=== PATIENT | female | born 1940 | race Caucasian/White ===

== ENCOUNTER 2018-04-07 13:23 | Emergency (ER) | payer MEDICARE ==
[~2018-04-07] VITALS: Ht 162.6 cm; Wt 90.8 kg
--- OUTSIDE RECORDS SUMMARY | 2018-04-07 13:25 | XMS REPORT | Clinical Summary ---
Author Author [facility] Address Unknown Phone Unavailable Care Team Providers Care Framing Machine Tender Name Role Phone Manish Steve MD PCP Allergies Active Allergy Reactions Severity Noted Date Comments Codeine GI Intolerance High 07/10/2017 Propoxyphene GI Intolerance High 07/10/2017 Meperidine GI Intolerance High 07/10/2017 Oxycodone GI Intolerance High 07/10/2017 Mgt-[id number]-Zye Pentazocine-Naloxone GI Intolerance High 07/10/2017 Current Medications Prescription Sig. Disp. Refills Start End Date Status Date LUMIGAN 0.01 % ophthalmic INT 1 GTT IN OU QHS 3 05/09/20 Active drops 17 bisoprolol-hydrochlorothi TK 1 T PO QD 2 06/19/19 Active azide (ZIAC) 5-6.25 mg 18 per tablet atorvastatin (LIPITOR) 20 TK 1 T PO QD 5 06/14/19 Active MG tablet 18 VITAMIN B COMPLEX VIT C Take by mouth. Active NO.4 (SUPER B COMPLEX + C ORAL) calcium acetate (PHOSLO) Take 1,334 mg by mouth 3 Active 667 mg capsule (three) times a day with meals. docosahexanoic acid-epa Take by mouth. Active (FISH OIL) 120-180 mg capsule oseltamivir (TAMIFLU) 75 TK 1 C PO QD FOR 10 DAYS 0 04/20/20 07/20/19 Discontin MG capsule 17 18 ued traMADol (ULTRAM) 50 mg Take 1 tablet (50 mg 30 tablet 0 07/25/19 07/30/19 tablet total) by mouth every 6 18 18 (six) hours as needed for moderate pain for up to 5 days. Active Problems Problem Noted Date S/P right knee arthroscopy 08/01/2017 Complex tear of medial meniscus of right knee as current injury 07/17/2017 Medial knee pain, right 07/10/2017 Encounters Date Type Specialty Care Team Description 08/01/2017 Office Visit Orthopedic Surgery Abdi Rondon MD S/P right knee arthroscopy (Primary Dx) 07/25/2017 Hospital General Surgery Abdi Rondon MD Encounter 07/25/2017 Anesthesia General Surgery Al Auguste MD Event 07/25/2017 Procedure Pass General Surgery 07/25/2017 Surgery General Surgery Abdi Rondon MD ARTHROSCOPY KNEE-RIGHT, PARTIAL MEDIAL MENISECTOMY 07/20/2017 Hospital Radiology Abdi Rondon MD Preoperative testing Encounter 07/20/2017 Pre-Admit Pre-Admission Testing Abdi Rondon MD Preoperative testing Testing (Primary Dx) Appointment 07/20/2017 Prep for Orthopedic Surgery Abdi Rondon MD Medial knee pain, right Surgery (Primary Dx); Complex tear of medial meniscus of right knee as current injury, initial encounter 07/17/2017 Office Visit Orthopedic Surgery Abdi Rondon MD Complex tear of medial meniscus of right knee as current injury, initial encounter (Primary Dx) 07/13/2017 Hospital Radiology Abdi Rondon MD Medial knee pain, right Encounter 07/10/2017 Office Visit Orthopedic Surgery Abdi Rondon MD Chronic pain of right knee (Primary Dx); Medial knee pain, right 07/10/2017 Procedure Pass Radiology after 04/06/2017 Family History Medical History Relation Name Comments Heart disease Father Cancer Mother Heart disease Mother Relation Name Status Comments Father Mother Social History Tobacco Use Types Packs/Day Years Used Date Never Smoker Smokeless Tobacco: Never Used Alcohol Use Drinks/Week oz/Week Comments No Sex Assigned at Date Recorded Not on file Last Filed Vital Signs Vital Sign Reading Time Taken Blood Pressure 152/60 07/25/2017 9:00 AM CUSTOMER PROJECT MANAGER Pulse 53 07/25/2017 9:00 AM CUSTOMER PROJECT MANAGER Temperature 36.5 C (97.7 F) 07/25/2017 8:32 AM CUSTOMER PROJECT MANAGER Respiratory Rate 13 07/25/2017 9:00 AM CUSTOMER PROJECT MANAGER Oxygen Saturation 97% 07/25/2017 9:00 AM CUSTOMER PROJECT MANAGER Inhaled Oxygen - - Concentration Weight 91.2 kg (201 lb 1 oz) 08/01/2017 1:32 PM CUSTOMER PROJECT MANAGER Height 162.6 cm (5' 4") 08/01/2017 1:32 PM CUSTOMER PROJECT MANAGER Body Mass Index 34.51 08/01/2017 1:32 PM CUSTOMER PROJECT MANAGER Plan of Treatment Health Maintenance Due Date Last Done Comments SHINGRIX VACCINE (#1) 1990 ZOSTER VACCINE 2000 PNEUMOCOCCAL 2005 POLYSACCHARIDE VACCINE AGE 65 AND OVER PNEUMOCOCCAL-13 2005 INFLUENZA VACCINE 01/09/2018 02/22/2017 Procedures Procedure Name Priority Date/Time Associated Diagnosis Comments SC AN ELECTIVE Routine 07/25/2017 SUPRAGLOTTIC AIRWAY 7:43 AM CUSTOMER PROJECT MANAGER Procedure Note - Al Auguste MD - 07/25/2017 7:43 AM CUSTOMER PROJECT MANAGER Airway Date/Time: 07/25/2017 7:41 AM Performed by: AL AUGUSTE Authorized by: AL AUGUSTE Location: OR Urgency: Elective Difficult Airway: No Anesthesio logist: AL AUGUSTE Performed by: anesthesio logist Preoxygena alejandra with 100% O2: Yes C-spine Precaution s Maintained Throughout : Yes Mask Ventilatio n: Not attempted Final Airway Type: Supraglott ic airway Final LMA: Classic LMA Size: 4 Number of Attempts at Approach: 1 OPERATION, KNEE, 07/25/2017 Complex tear of medial ARTHROSCOPIC 7:30 AM CUSTOMER PROJECT MANAGER meniscus, current injury, right knee, initial encounter Special Needs BMI: 34.51 XR CHEST 2 VW Routine 07/20/2017 Preoperative testing Results for this 9:04 AM CUSTOMER PROJECT MANAGER procedure are in the results section. ECG PRE/POST OP Routine 07/20/2017 Preoperative testing Results for this 8:14 AM CUSTOMER PROJECT MANAGER procedure are in the results section. ZZESTIMATED GFR Routine 07/20/2017 Results for this 8:04 AM CUSTOMER PROJECT MANAGER procedure are in the results section. URINALYSIS, AUTOMATED Routine 07/20/2017 Preoperative testing Results for this WITH MICROSCOPY 8:04 AM CUSTOMER PROJECT MANAGER procedure are in the results section. PROTHROMBIN TIME WITH INR Routine 07/20/2017 Preoperative testing Results for this 8:04 AM CUSTOMER PROJECT MANAGER procedure are in the results section. PARTIAL THROMBOPLASTIN Routine 07/20/2017 Preoperative testing Results for this TIME (PTT) 8:04 AM CUSTOMER PROJECT MANAGER procedure are in the results section. COMPREHENSIVE METABOLIC Routine 07/20/2017 Preoperative testing Results for this PANEL 8:04 AM CUSTOMER PROJECT MANAGER procedure are in the results section. HC COMPLETE BLD COUNT Routine 07/20/2017 Preoperative testing Results for this W/AUTO DIFF 8:04 AM CUSTOMER PROJECT MANAGER procedure are in the results section. MRI KNEE WO CONTRAST Routine 07/13/2017 Medial knee pain, right Results for this RIGHT 8:37 AM CUSTOMER PROJECT MANAGER procedure are in the results section. XR KNEE 4+ VW RIGHT Routine 07/10/2017 Chronic pain of right Results for this 8:50 AM CUSTOMER PROJECT MANAGER knee procedure are in the results section. after 04/06/2017 Results * XR Chest 2 Vw (07/20/2017 9:04 AM) Narrative Performed At EXAMINATION:XR CHEST 2 VW [facility] CLINICAL HISTORY:Z01.818 Encounter for other preprocedural examination, preop COMPARISON:None. IMPRESSION: Heart is mildly enlarged. There is no confluent airspace disease, pleural effusion or pneumothorax. [facility]-[id number] Procedure Note Hm Interface, Radiology Results Incoming - 07/20/2017 4:25 PM CUSTOMER PROJECT MANAGER EXAMINATION: XR CHEST 2 VW CLINICAL HISTORY: Z01.818 Encounter for other preprocedural examination, preop COMPARISON: None. IMPRESSION: Heart is mildly enlarged. There is no confluent airspace disease, pleural effusion or pneumothorax. [facility]-[id number] Performing Organization Address [facility] Phone Number [facility] [address] [place] [address] * ECG Pre/Post Op (07/20/2017 8:14 AM) Ventricular rate 54 [facility]USE Atrial rate 54 [facility] SC interval 148 [facility] QRSD interval 80 [facility] QT interval 448 [facility] QTC interval 424 [facility] P axis 1 -2 [facility] QRS axis 1 10 [facility] T wave axis 39 [facility] EKG impression Sinus bradycardia-Otherwise [facility] MUSE normal ECG-No previous ECGs available- Performing Organization Address [facility] Phone Number [facility] MUSE [address] [place] [address] * Estimated GFR (07/20/2017 8:04 AM) GFR Non Af Amer 61 mL/min/1.73 m2 [facility] DEPARTMENT OF PATHOLOGY AND GENOMIC MEDICINE GFR Af Amer 74 mL/min/1.73 m2 [facility] DEPARTMENT OF Comment: PATHOLOGY AND Chronic kidney disease: <60 GENOMIC MEDICINE mL/min/1.73m2 Kidney failure: <15 mL/min/1.73m2 The estimated GFR is calculated from the IDMS-traceable Modification of Diet in Renal Disease Equation. The accuracy of the calculation is poor when the creatinine is normal. Calculated values >90 mL/min/1.73m2 are not reported. This equation has not been validated in children (<18 years), women, the elderly (>70 years), or ethnic groups other than Caucasians and Americans. Specimen Plasma specimen Performing Organization Address City/[facility]/Zipcode Phone Number [facility] [address] [place] [address] PATHOLOGY AND [facility] MEDICINE * Urinalysis, automated with microscopy (07/20/2017 8:04 AM) Color, UA Yellow [facility] DEPARTMENT OF PATHOLOGY AND GENOMIC MEDICINE Appearance, UA Turbid [facility] DEPARTMENT OF PATHOLOGY AND GENOMIC MEDICINE Specific gravity, UA 1.014 1.001 - 1.035 [facility] DEPARTMENT OF PATHOLOGY AND GENOMIC MEDICINE pH, UA 6.0 5.0 - 8.5 [facility] DEPARTMENT OF PATHOLOGY AND GENOMIC MEDICINE Protein, UA Negative Negative [facility] DEPARTMENT OF PATHOLOGY AND GENOMIC MEDICINE Glucose, UA Negative Negative [facility] DEPARTMENT OF PATHOLOGY AND GENOMIC MEDICINE Ketones, UA Negative Negative [facility] DEPARTMENT OF PATHOLOGY AND GENOMIC MEDICINE Bilirubin, UA Negative Negative [facility] DEPARTMENT OF PATHOLOGY AND GENOMIC MEDICINE Blood, UA Negative Negative [facility] DEPARTMENT OF PATHOLOGY AND GENOMIC MEDICINE Nitrite, UA Negative Negative [facility] DEPARTMENT OF PATHOLOGY AND GENOMIC MEDICINE Urobilinogen, UA Negative <2.0 [facility] DEPARTMENT OF PATHOLOGY AND GENOMIC MEDICINE Leukocyte esterase, UA Negative Negative [facility] DEPARTMENT OF PATHOLOGY AND GENOMIC MEDICINE Epithelial cells, UA Many /HPF [facility] DEPARTMENT OF PATHOLOGY AND GENOMIC MEDICINE WBC, UA 18 (H) 0 - 5 /HPF [facility] DEPARTMENT OF PATHOLOGY AND GENOMIC MEDICINE RBC, UA 3 0 - 5 /HPF [facility] DEPARTMENT OF PATHOLOGY AND GENOMIC MEDICINE Bacteria, UA Trace None seen [facility] DEPARTMENT OF PATHOLOGY AND GENOMIC MEDICINE Yeast, UA None seen [facility] DEPARTMENT OF PATHOLOGY AND GENOMIC MEDICINE Yeast with pseudohyphae, None seen [facility][1] PATHOLOGY AND GENOMIC MEDICINE Specimen Urine Performing Organization Address City/[facility]/Zipcode Phone Number [facility] [address] [place] [id number] PATHOLOGY AND [employer] MEDICINE * Partial thromboplastin time, activated (07/20/2017 8:04 AM) PTT 31.3 23.0 - 36.0 sec [facility] DEPARTMENT OF Comment: PATHOLOGY AND PTT therapeutic range for GENOMIC MEDICINE unfractionated heparin is 61.0-112.0 seconds which corresponds to Anti-Xa 0.3-0.7 U/ml. Note:Change in Panic Value The PTT Panic Value is changing from 110 sec. to 100 sec. due to new instrumentation and reagents. Correlation studies have been performed to validate this result. Specimen Blood Performing Organization Address City/[facility]/Zipcode Phone Number [facility] [address] [place] [address] PATHOLOGY AND [employer] MEDICINE * Prothrombin time with INR (07/20/2017 8:04 AM) Prothrombin time 12.5 12.0 - 15.0 sec [facility] DEPARTMENT OF PATHOLOGY AND [employer] MEDICINE INR 0.92 0.92 - 1.12 [facility] DEPARTMENT OF Comment: PATHOLOGY AND For patients on anticoagulant GENOMIC MEDICINE therapy, reference ranges below: Indication: INR Value Treatment of Venous Thrombosis, 2.0-3.0 pulmonary emboli, or prophylaxis of a venous thrombosis, or systemic emboli. High dose, high risk patients 3.0-4.5 with mechanical valves. NOTE:INR values over 3.0 are sometimes associated with gastrointestinal hemorrhage, especially values over 4.0. Specimen Blood Performing Organization Address City/[facility]/Zipcode Phone Number [facility] [address] [place] [address] PATHOLOGY AND [employer] [facility] * CBC with platelet and differential (07/20/2017 8:04 AM) WBC 5.5 4.2 - 11.0 k/uL [facility] DEPARTMENT OF PATHOLOGY AND GENOMIC MEDICINE RBC 4.17 4.04 - 5.86 m/uL [facility] DEPARTMENT OF PATHOLOGY AND GENOMIC MEDICINE HGB 13.5 11.5 - 15.3 g/dL [facility] DEPARTMENT OF PATHOLOGY AND GENOMIC MEDICINE HCT 41.3 34.0 - 45.0 % [facility] DEPARTMENT OF PATHOLOGY AND GENOMIC MEDICINE MCV 99.0 (H) 80.0 - 98.0 fL [facility] DEPARTMENT OF PATHOLOGY AND GENOMIC MEDICINE MCH 32.4 27.0 - 34.0 pg [facility] DEPARTMENT OF PATHOLOGY AND GENOMIC MEDICINE MCHC 32.7 31.5 - 36.5 g/dL [facility] DEPARTMENT OF PATHOLOGY AND GENOMIC MEDICINE RDW - SD 43.6 37.0 - 51.0 fL [facility] DEPARTMENT OF PATHOLOGY AND GENOMIC MEDICINE MPV 11.3 (H) 7.4 - 10.4 fL [facility] DEPARTMENT OF PATHOLOGY AND GENOMIC MEDICINE Platelet count 199 150 - 400 k/uL [facility] DEPARTMENT OF PATHOLOGY AND GENOMIC MEDICINE Nucleated RBC 0.00 /100 WBC [facility] DEPARTMENT OF PATHOLOGY AND GENOMIC MEDICINE Neutrophils 53.0 36.0 - 66.0 % [facility] DEPARTMENT OF PATHOLOGY AND GENOMIC MEDICINE Lymphocytes 31.6 24.0 - 44.0 % [facility] DEPARTMENT OF PATHOLOGY AND GENOMIC MEDICINE Monocytes 11.4 (H) 0.0 - 6.0 % [facility] DEPARTMENT OF PATHOLOGY AND GENOMIC MEDICINE Eosinophils 2.9 0.0 - 6.0 % [facility] DEPARTMENT OF PATHOLOGY AND GENOMIC MEDICINE Basophils 0.9 0.0 - 1.2 % [facility] DEPARTMENT OF PATHOLOGY AND GENOMIC MEDICINE Immature granulocytes 0.2 0.0 - 1.0 % [facility] DEPARTMENT OF PATHOLOGY AND GENOMIC MEDICINE Specimen Blood Performing Organization Address City/State/Zipcode Phone Number [place] [address] [place] [address] PATHOLOGY AND GENOMIC MEDICINE * Comprehensive metabolic panel (07/20/2017 8:04 AM) Sodium 140 135 - 150 mEq/L [facility] DEPARTMENT OF PATHOLOGY AND GENOMIC MEDICINE Potassium 3.8 3.5 - 5.0 mEq/L [facility] DEPARTMENT OF PATHOLOGY AND GENOMIC MEDICINE Chloride 103 100 - 109 mEq/L [facility] DEPARTMENT OF PATHOLOGY AND GENOMIC MEDICINE CO2 31 24 - 32 mmol/L [facility] DEPARTMENT OF PATHOLOGY AND GENOMIC MEDICINE Anion gap 6 (L) 7 - 15 mEq/L [facility] DEPARTMENT OF Comment: PATHOLOGY AND Starting from September [facility] MEDICINE , anion gap calculation no longer incorporates potassium. Please note the change. BUN 23 (H) 7 - 18 mg/dL [facility] DEPARTMENT OF PATHOLOGY AND GENOMIC MEDICINE Creatinine 0.9 0.8 - 1.5 mg/dL [facility] DEPARTMENT OF PATHOLOGY AND GENOMIC MEDICINE Glucose 88 65 - 100 mg/dL [facility] DEPARTMENT OF PATHOLOGY AND GENOMIC MEDICINE Calcium 9.0 8.6 - 10.7 mg/dL [facility] DEPARTMENT OF PATHOLOGY AND GENOMIC MEDICINE Protein 7.5 6.3 - 8.2 g/dL [facility] DEPARTMENT OF PATHOLOGY AND GENOMIC MEDICINE Albumin 3.4 3.2 - 5.0 g/dL [facility] DEPARTMENT OF PATHOLOGY AND GENOMIC MEDICINE A/G ratio 0.8 0.7 - 3.8 [facility] DEPARTMENT OF PATHOLOGY AND GENOMIC MEDICINE Alkaline phosphatase 107 30 - 120 U/L [facility] DEPARTMENT OF PATHOLOGY AND GENOMIC MEDICINE AST 20 15 - 37 U/L [facility] DEPARTMENT OF PATHOLOGY AND GENOMIC MEDICINE ALT 32 30 - 65 U/L [facility] DEPARTMENT OF PATHOLOGY AND GENOMIC MEDICINE Total bilirubin 0.4 0.2 - 1.2 mg/dL [facility] DEPARTMENT OF PATHOLOGY AND GENOMIC MEDICINE Specimen Plasma specimen Performing Organization Address City/State/Zipcode Phone Number [facility] DEPARTMENT OF [address] [place] [address] PATHOLOGY AND GENOMIC MEDICINE * MRI Knee Right Wo Contrast (07/13/2017 8:37 AM) Narrative Performed At [facility] EXAMINATION:MRI KNEE WO CONTRAST RIGHT CLINICAL HISTORY: 76 years Female M25.561 Pain in right knee, Focal medial knee painrule out torn medial meniscus TECHNIQUE:Multiplanar multisequence MR imaging of the right knee was performed without contrast. COMPARISON:None. FINDINGS: Cruciate ligaments: Intact. Menisci: There is a horizontal tear involving the body and posterior horn of the medial meniscus with extension to the inferior articular surface. The lateral meniscus is intact. Collateral ligaments: Intact. There is minimal edema overlying the medial collateral ligament. Bone marrow: No focal abnormality. Articular cartilage: There is diminished and denuded articular cartilage involving the median ridge of the patella. A chondral osteophyte is present. Chondromalacia and chondral fissures are noted along the medial aspect of the lateral patellar facet. Articular cartilage is otherwise unremarkable. Effusion: There is a small joint effusion. Moderate amount of fluid is present in the gastrocnemius semimembranosus bursa. There is edema extending along the posterior aspect of the medial head of the gastrocnemius muscle. Extensor mechanism: Intact. Soft tissues: There is nonspecific edema along the anterior and anteromedial aspect of the knee. IMPRESSION: 1.Horizontal tear body and posterior horn medial meniscus with extension to the inferior articular surface. 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 3.Small joint effusion. Moderate popliteal cyst with evidence of dissection. 4.No evidence of cruciate ligament, lateral meniscal, or collateral ligament tear. [facility]-[id number] Procedure Note Interface, Radiology Results Incoming - 07/13/2017 8:49 AM CUSTOMER PROJECT MANAGER EXAMINATION: MRI KNEE WO CONTRAST RIGHT CLINICAL HISTORY: 76 years Female M25.561 Pain in right knee, Focal medial knee pain rule out torn medial meniscus TECHNIQUE: Multiplanar multisequence MR imaging of the right knee was performed without contrast. COMPARISON: None. FINDINGS: Cruciate ligaments: Intact. Menisci: There is a horizontal tear involving the body and posterior horn of the medial meniscus with extension to the inferior articular surface. The lateral meniscus is intact. Collateral ligaments: Intact. There is minimal edema overlying the medial collateral ligament. Bone marrow: No focal abnormality. Articular cartilage: There is diminished and denuded articular cartilage involving the median ridge of the patella. A chondral osteophyte is present. Chondromalacia and chondral fissures are noted along the medial aspect of the lateral patellar facet. Articular cartilage is otherwise unremarkable. Effusion: There is a small joint effusion. Moderate amount of fluid is present in the gastrocnemius semimembranosus bursa. There is edema extending along the posterior aspect of the medial head of the gastrocnemius muscle. Extensor mechanism: Intact. Soft tissues: There is nonspecific edema along the anterior and anteromedial aspect of the knee. IMPRESSION: 1. Horizontal tear body and posterior horn medial meniscus with extension to the inferior articular surface. 2. 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 3. Small joint effusion. Moderate popliteal cyst with evidence of dissection. 4. No evidence of cruciate ligament, lateral meniscal, or collateral ligament tear. [id number] Performing Organization Address [facility] Cent[facility] Phone Number [facility] [address] [place] [address] * XR Knee 4+ Vw Right (07/10/2017 8:50 AM) Narrative Performed At [facility] Weightbearing AP and PA x-rays on both knees with a lateral x-ray of the right knee: Normal study with no arthropathy Performing Organization Address City/State/Zipcode Phone Number [facility] [address] [place] [address] after 04/06/2017 Insurance Payer Benefit Subscriber ID Type Phone Address Plan / Group HUMANA MEDICARE HUMANA xxxxxxxxx PPO MEDICARE PPO/PFFS/[place] [id number]
[2018-04-07] MEDS ORDERED: BISOPROLOL-HCT1 EAC1 (13:42)
[2018-04-07] MEDS ORDERED: OMEGA-31000 MG (13:42)
[2018-04-07] MEDS ORDERED: LIPITOR20 MG PO (13:42)
[2018-04-07] MEDS ORDERED: SUPER B COMPLE150 MG (13:42)
[2018-04-07] MEDS ORDERED: OS-CAL 500+D T1 EACH PO (13:42)
[2018-04-07] MEDS ORDERED: ATORVASTATIN CA20 MG PO (13:42)
[2018-04-07] MEDS ORDERED: LUMIGAN2.5 M1 OP (13:42)
[2018-04-07] MEDS ORDERED: SODIUM CHLORIDE 0.9% 1000ML 1,000 ML IV SCH (13:45)
[2018-04-07] MEDS ORDERED: ONDANSETRON HCL INJ 2 MG/ML VIAL IV ONE (14:30)
--- NOTE | 2018-04-07 14:30 | Diagnostic Imaging Report ---
EXAMINATION: CXR 2 VIEW - HOPD INDICATION: Cough, runny nose, body aches COMPARISON: None FINDINGS: PA and lateral views TUBES and LINES: None. LUNGS: Lungs are well inflated. There is no evidence of pneumonia or pulmonary edema. PLEURA: No pleural effusion or pneumothorax. HEART AND MEDIASTINUM: The heart is top normal in size. BONES AND SOFT TISSUES: No focal osseous lesions. Soft tissues are unremarkable. UPPER ABDOMEN: No free air under the diaphragm. IMPRESSION: No acute thoracic abnormality. Signed by: Dr. Mallory Doyle MD on 04/07/2018 2:27 PM
== END 2018-04-07 15:40 | disposition home or self-care (01) ==
LOC: FSED 13:23
DX: R50.9 Fever, unspecified (principal); R05 Cough; J09.X2 Influenza due to identified novel influenza A virus with other respiratory manifestations; I10 Essential (primary) hypertension
CPT/HCPCS: 71046; 87400; 99284; J2405

== ENCOUNTER 2021-01-06 09:55 | Emergency (ER) | payer MEDICARE ==
[~2021-01-06] VITALS: Ht 162.6 cm; Wt 91.6 kg
[~2021-01-06 09:55] MED LIST: ATORVASTATIN CA20 MG PO; BISOPROLOL-HCT1 EAC1; LIPITOR20 MG PO; LUMIGAN2.5 M1 OP; OMEGA-31000 MG; OS-CAL 500+D T1 EACH PO; SUPER B COMPLE150 MG
[2021-01-06] MEDS: POTASSIUM CHLORIDE 20 MEQ TAB CR PO STA (11:55)
[2021-01-06] MEDS ORDERED: POTASSIUM CHLORIDE 20 MEQ TAB CR PO ONE (12:03)
== END 2021-01-06 12:00 | disposition home or self-care (01) ==
LOC: FSED 10:10
DX: R53.83 Other fatigue (principal); R73.9 Hyperglycemia, unspecified; I10 Essential (primary) hypertension; E78.5 Hyperlipidemia, unspecified
CPT/HCPCS: 36415; 80053; 81003; 82553; 82948; 84484; 85025; 99284

== ENCOUNTER 2023-04-16 09:12 | Emergency (ER) | payer MEDICARE ==
[~2023-04-16] VITALS: Ht 162.6 cm; Wt 90.7 kg
[2023-04-16] MEDS ORDERED: ONDANSETRON HCL 4 MG ORAL DISINTEGRATING TAB PO ONE (09:45)
[2023-04-16] MEDS ORDERED: ACETAMINOPHEN 325 MG TAB PO ONE (09:45)
[2023-04-16] MEDS ORDERED: ONDANSETRON HCL 4 MG ORAL DISINTEGRATING TAB ONE (09:51)
[2023-04-16] MEDS ORDERED: ACETAMINOPHEN 325 MG TAB ONE (09:51)
[2023-04-16] MEDS ORDERED: ONDANSETRON ODT4 MG PO (10:01)
[2023-04-16 10:28] VITALS: O2SAT 98
== END 2023-04-16 10:30 | disposition home or self-care (01) ==
LOC: FSED 09:15
DX: R11.0 Nausea (principal); U07.1 COVID-19; M79.10 Myalgia, unspecified site; I10 Essential (primary) hypertension; E78.5 Hyperlipidemia, unspecified
CPT/HCPCS: 0223U; 87400; 99283; Q0162

== ENCOUNTER → 2024-11-17 | Outpatient (REF) | payer MEDICARE ==
[~2024-11-17] MED LIST changes: +ONDANSETRON ODT4 MG PO
== END ==
LOC: US 12:16
PROVIDERS: ATTEND Internal Medicine Nephrology
DX: N18.32 Chronic kidney disease, stage 3b (principal)
CPT/HCPCS: 76770; 76857